=== PATIENT | female | born 1980 | race Two or more races ===

== ENCOUNTER 2016-06-27 08:35 | Emergency (ER) | payer SELFPAY ==
[~2016-06-27] VITALS: Ht 162.6 cm; Wt 104.3 kg
[~2016-06-27 08:35] MED LIST: ACET325T9 PO; OMEP20TA PO
[2016-06-27 08:40] VITALS: BP 135/71
[2016-06-27] MEDS ORDERED: NAPROXEN 500 MG TABLET PO STA (09:06)
[2016-06-27] MEDS ORDERED: NAPR500T PO (09:10)
[2016-06-27] MEDS ORDERED: HYDR-971 PO (09:10)
--- NOTE | 2016-06-27 09:10 | PHYS DOC ---
Past Medical History Past Medical History: Anemia, Asthma, Migraines Past Surgical History: No Surgical History Alcohol Use: None Drug Use: None Adult General Chief Complaint Chief Complaint: HEADACHE HPI HPI Patient is a 35 year old female who presents with complaint of right-sided headache. Patient states that her symptoms started 3 days ago and have progressively gotten worse over that time. Patient states that her symptoms were mild but noticed sharpness along the right side of her head. Patient states that she now has significant sharpness along the right side of her scalp. Patient rates her pain currently as 9 out of 10. Patient states that she tried [id number] ibuprofen with minimal relief in symptoms. Patient last took the medication last night. Patient denies any vision loss, difficulty with speech or swallowing, nausea or vomiting, or unsteadiness in gait. Patient states that she has had history of headaches but states that she hasn't had any in several years. Patient denies family history of aneurysm. Review of Systems Review of Systems Constitutional: Denies fever or chills [] Eyes: Denies change in visual acuity, redness, or eye pain [] HENT: Denies nasal congestion or sore throat [] Respiratory: Denies cough or shortness of breath [] Cardiovascular: Denies chest pain or edema [] GI: Denies abdominal pain, nausea, vomiting, bloody stools or diarrhea [] : Denies dysuria or hematuria [] Musculoskeletal: Denies back pain or joint pain [] Integument: Denies rash or skin lesions [] Neurologic: Headache, denies focal weakness or sensory changes [] Current Medications Current Medications Current Medications Medications (Trade) Dose Ordered Sig/Vaishnavi Start Time Stop Time Status Last Admin Dose Admin Acetaminophen/ Hydrocodone Bitart (Lortab 7.5/325) 1 tab 1X ONCE 06/27/16 09:15 06/27/16 09:16 Naproxen (Naprosyn) 500 mg 1X STAT 06/27/16 09:06 06/27/16 09:09 DC Allergies Allergies Allergies Coded Allergies Type Severity Reaction Last Updated Verified No Known Drug Allergies 08/10/14 No Physical Exam Physical Exam Constitutional: Alert, afebrile, appears in minimal discomfort. [] HENT: Normocephalic, atraumatic, right-sided parietal scalp tenderness to palpation, bilateral external ears normal, oropharynx moist, no oral exudates, nose normal. [] Eyes: PERRLA, EOMI, conjunctiva normal, no discharge. [] Neck: Normal range of motion, right paraspinous muscle tenderness to palpation, no midline tenderness, supple, no stridor. [] Cardiovascular:Heart rate regular rhythm, no murmur [] Lungs & Thorax: Bilateral breath sounds clear to auscultation [] Abdomen: Bowel sounds normal, soft, no tenderness, no masses, no pulsatile masses. [] Skin: Warm, dry, no erythema, no rash. [] Back: No tenderness, no CVA tenderness. [] Extremities: No tenderness, no cyanosis, no clubbing, ROM intact, no edema. [] Neurologic: Alert and oriented X 3, normal motor function, normal sensory function, no focal deficits noted. [] Current Patient Data Vital Signs Vital Signs Date Time Temp Pulse Resp B/P Pulse Ox O2 Delivery O2 Flow Rate FiO2 06/27/16 08:40 98.6 68 18 135/71 97 Room Air 98.6 EKG EKG Not performed [] Radiology/Procedures Radiology/Procedures Not performed [] Course & Med Decision Making Course & Med Decision Making Pertinent Labs and Imaging studies reviewed. (See chart for details) The patient does not display symptoms concerning for severe cause of patient's headache. The patient's neck tenderness and scalp tenderness suggest etiology of headache likely from neck muscle tightness causing pressure on the patient's scalp. Patient was started on [place] and Naprosyn. Patient was given prescriptions for both medications to continue as outpatient with recommended follow-up in 3-5 days. Advised return to emergency department for any worsening symptoms. Patient voiced understanding and in agreement with treatment plan. Dragon Disclaimer Dragon Disclaimer This electronic medical record was generated, in whole or in part, using a voice recognition dictation system. Departure Departure Impression: Primary Impression: Headache Disposition: 01 HOME, SELF-CARE Condition: STABLE Referrals: NO PCP (PCP) Patient Instructions: General Headache Without Cause Additional Instructions: Follow-up with your primary doctor in 3-5 days. Return to the emergency department for any worsening symptoms. Scripts Naproxen (Naprosyn)500 Mg [id number] Mg PO BID #20 TAB Prov:SHABNAM SMALLWOOD MD 06/27/16 Hydrocodone/Apap 5-325 ([place] 5-325 Tablet)1 Each Tablet1 Tab PO Q4HRS PRN PAIN #15 TAB Prov:SHABNAM SMALLWOOD MD 06/27/16 Problem Qualifiers Primary Impression: Headache Headache type: unspecified Headache chronicity pattern: acute headache Intractability: not intractable Qualified Code: R51 - Headache SHABNAM SMALLWOOD MD Jun 27, 2016 09:10
[2016-06-27] MEDS ORDERED: HYDROCODONE/APAP 7.5/325MG TABLET. PO ONE (09:15)
[2016-06-27 12:38] LABS: NEG OBC UR NEG; POS OBC UR POS
== END 2016-06-27 09:47 | disposition home or self-care (01) ==
LOC: ER 08:35
DX: R51 Headache (principal); J45.909 Unspecified asthma, uncomplicated; G43.009 Migraine without aura, not intractable, without status migrainosus
CPT/HCPCS: 81025; 99283

== ENCOUNTER 2021-03-12 16:59 | Emergency (ER) | payer SELFPAY ==
[~2021-03-12] VITALS: Ht 157.5 cm; Wt 104.3 kg
[~2021-03-12 16:59] MED LIST changes: +HYDR-3164 PO; +NAPR-683 PO; -OMEP20TA PO; +OMEP20TA8 PO
[2021-03-13] MEDS ORDERED: DIPH,PERTUSS(ACELL),TET VAC/PF 0.5 ML SYRINGE. VAX IM ONE (02:30)
[2021-03-13] MEDS ORDERED: LIDOCAINE 1% Multi-Dose 20 ML VIAL. INJ ONE (02:30)
--- NOTE | 2021-03-13 02:31 | RAD ---
XR FINGER(S)_RIGHT 2+VIEWS History: Reason: crush injury / Spl. Instructions: / History: Technique: PA view the hand and 2 additional views of the second digit. Comparison: None. Findings: Acute comminuted second distal tuft fracture with mild displacement. There is a right soft tissue inj ury with subcutaneous gas. No additional fracture. Impression: 1. Acute comminuted displaced right second distal tuft fracture. Electronically signed by: Thanh Almodovar DO (03/13/2021 2:28 AM) DARRYN
[2021-03-13 04:00] VITALS: BP 120/79
[2021-03-13] MEDS ORDERED: CEPH500T PO (04:08)
[2021-03-13] MEDS ORDERED: HYDR-2761 PO (04:08)
--- NOTE | 2021-03-13 04:12 | ED.ADGEN ---
Past Medical History Past Medical History: Anemia, Asthma, Migraines Past Surgical History: No Surgical History Smoking Status: Never Smoker Alcohol Use: Occasionally Drug Use: None General Adult EDM: Chief Complaint: LACERATION/AVULSION HPI: HPI: Patient is a 40 year old female coming in for a crush injury to her right distal second finger including the nail. Patient says her niece had closed a wooden door onto her finger. No other injuries. Last tetanus greater than 10 years ago. Patient has a history of diabetes. Review of Systems: Review of Systems: All other systems within normal limits except for as noted in the HPI Current Medications: Current Medications Medications (Trade) Dose Ordered Sig/Vaishnavi Start Time Stop Time Status Last Admin Dose Admin Diphtheria/ Tetanus/Acell Pertussis (ADACEL TDap SYRINGE) 0.5 ml ONCE ONCE 03/13/21 02:30 03/13/21 02:31 DC 03/13/21 02:33 0.5 ML Lidocaine HCl (Lidocaine 1% 20ml Vial) 20 ml 1X ONCE 03/13/21 02:30 03/13/21 02:31 DC 03/13/21 02:33 20 ML Allergies: Allergies: Allergies Coded Allergies Type Severity Reaction Last Updated Verified No Known Drug Allergies 08/10/14 No Physical Exam: PE: Constitutional: Well developed, well nourished, no acute distress, non-toxic appearance. [] HENT: Normocephalic, atraumatic, bilateral external ears normal, nose normal. [] Eyes: PERRLA, conjunctiva normal, no discharge. [] Neck: No rigidity, supple, no stridor. [] Cardiovascular: Regular rate and rhythm, brisk cap refill [] Lungs & Thorax: Non labored symmetric respirations, no tachypnea or respiratory distress [] Abdomen: Soft, nondistended. Skin: Warm, dry, no erythema, no rash. Laceration to right second finger on the volar aspect at the base of the fingernail and extending about half a centime ter to each side on the dorsal aspect of the finger. Subungual hematoma involving the proximal third of the fingernail [] Back: Unremarkable Extremities: No deformities, range of motion grossly intact, no lower extremity edema. PIP and DIP range of motion intact on right second finger [] Neurologic: Alert and oriented X 3, no focal deficits noted. [] Psychologic: Affect normal, judgement normal, mood normal. [] Current Patient Data: Labs: Laboratory Tests Test 03/12/21 20:19 POC Urine HCG, Qualitative Hcg negative (Negative) Vital Signs: Vital Signs Date Time Temp Pulse Resp B/P (MAP) Pulse Ox O2 Delivery O2 Flow Rate FiO2 03/13/21 01:58 74 18 156/93 (114) 100 03/13/21 00:45 Room Air 03/12/21 19:30 97.7 97.7 EKG: EKG: [] Heart Score: C/O Chest Pain: No Risk Factors: Risk Factors: DM, Current or recent (<one month) smoker, HTN, HLP, family history of CAD, obesity. Risk Scores: Score 0 - 3: 2.5% MACE over next 6 weeks - Discharge Home Score 4 - 6: 20.3% MACE over next 6 weeks - Admit for Clinical Observation Score 7 - 10: 72.7% MACE over next 6 weeks - Early Invasive Strategies Radiology/Procedures: Radiology/Procedures: [facility] [address] [place] [address] IMAGING REPORT Signed PATIENT: MEGAN GROSSACCOUNT: [id number] : 1980 LOCATION: ER AGE: 40 SEX: F EXAM STATUS: REG ER ORD. PHYSICIAN: RAJ NAVARRETE MD REASON: crush injury PROCEDURE: FINGER(S) RIGHT XR FINGER(S)_RIGHT 2+VIEWS History: Reason: crush injury / Spl. Instructions: / History: Technique: PA view the hand and 2 additional views of the second digit. Comparison: None. Findings: Acute comminuted second distal tuft fracture with mild displacement. There is a right soft tissue injury with subcutaneous gas. No additional fracture. Impression: 1. Acute comminuted displaced right second distal tuft fracture. Electronically signed by: Thanh Romo DO (03/13/2021 2:28 AM) [facility] DICTATED and SIGNED BY: THANH ROMO DO DATE: 03/13/21 [id number] [] Impression: Patient was prepped and draped in normal fashion, wound irrigated and cleansed with normal saline. The 2 cm wound was anesthetized with lidocaine 1% without epi. Depth of wound was examined and no foreign bodies found. The root of the fingernail was tucked back under the skin as much as possible, due to the crushing nature of the injury some of the skin at the cuticle is emaciated. On lifting the root there were no lacerations penetrating the nailbed itself, only the cuticle was damaged. Wound was approximated with 5-0 Ethilon suture in a simple wrap pattern. [] Sutures placed without complication. Wound was [] dressed a nonadherent bandage. 3 of the sutures were through the nail to tack it down after being tucked back as much of the cuticle to secure it to the nailbed. The subungual hematoma was evacuated with cautery pen Course & Med Decision Making: Course & Med Decision Making Pertinent Labs and Imaging studies reviewed. (See chart for details) [] Dragon Disclaimer: Dragon Disclaimer: This electronic medical record was generated, in whole or in part, using a voice recognition dictation system. Departure Departure Impression: Primary Impression: Traumatic avulsion of nail plate of finger Additional Impression: Phalanx, distal fracture of finger Disposition: HOME / SELF CARE / HOMELESS Condition: STABLE Referrals: NO PCP (PCP) Patient Instructions: Fingertip Laceration, Nail Avulsion Injury Additional Instructions: Return to emergency department or call primary care provider if any concerns for infection. Take antibiotics as prescribed and pain medicines as needed. Do not get laceration wet for at least 48 hours. Stitches can be removed in 7 days but splint may be worn for approximately 3 weeks for the fingertip fracture to heal. Splint can be removed so the dressings can be changed, but needs to otherwise stay in place until sutures removed. Scripts Cephalexin (CEPHALEXIN) 500 Mg Tablet 1 TAB PO TID for antibiotic for 7 Days, #21 TAB Prov: RAJ NAVARRETE MD 03/13/21 Hydrocodone Bit/Acetaminophen (HYDROCODONE-APAP 5-325 ) 1 Tab Tablet 1 TAB PO PRN Q6HRS PRN for PAIN for 3 Days, #12 TAB 0 Refills Prov: RAJ NAVARRETE MD 03/13/21 Problem Qualifiers RAJ NAVARRETE MD Mar 13, 2021 04:12
[2021-03-13] MEDS ORDERED: NEOMY/BACITR/POLYMYXIN OINT PACKET. TP ONE (04:15)
[2021-03-13] MEDS ORDERED: HYDROcodone/APAP 7.5/325MG 1 TAB TABLET PO ONE (04:15)
[2021-03-13] MEDS ORDERED: CEPHALEXIN 250 MG CAPSULE. PO ONE (04:15)
== END 2021-03-13 01:55 | disposition home or self-care (01) ==
LOC: ER 16:59
DX: S62.630A Displaced fracture of distal phalanx of right index finger, initial encounter for closed fracture (principal); S61.310A Laceration without foreign body of right index finger with damage to nail, initial encounter; J45.909 Unspecified asthma, uncomplicated; G43.909 Migraine, unspecified, not intractable, without status migrainosus; Z86.2 Personal history of diseases of the blood and blood-forming organs and certain disorders involving the immune mechanism; W23.0XXA Caught, crushed, jammed, or pinched between moving objects, initial encounter; Y93.89 Activity, other specified; Y92.89 Other specified places as the place of occurrence of the external cause; Y99.8 Other external cause status
CPT/HCPCS: 11740; 12001; 29125; 73140; 81025; 90471; 90715; 99285; J3490